=== PATIENT | male | born 1995 | race Asian ===

== ENCOUNTER 2017-06-15 19:34 | Emergency (ER) | payer OTHER ==
[~2017-06-15] VITALS: Ht 177.8 cm; Wt 74.8 kg
[2017-06-15 19:38] VITALS: BP_SYST 114
[2017-06-15] MEDS ORDERED: BACITRACIN 1 GM OINT TP ONE (20:15)
[2017-06-15 20:20] VITALS: BP_SYST 118
== END 2017-06-15 20:20 | disposition home or self-care (01) ==
LOC: SED 19:34
DX: S80.211A Abrasion, right knee, initial encounter (principal); X58.XXXA Exposure to other specified factors, initial encounter; Y93.39 Activity, other involving climbing, rappelling and jumping off; Y92.89 Other specified places as the place of occurrence of the external cause; Y99.8 Other external cause status
CPT/HCPCS: 99283